=== PATIENT | male | born 1930 | race Caucasian/White ===

== ENCOUNTER → 2019-09-21 | Outpatient (CLI) | payer MEDICARE, OTHER ==
[~2019-09-21] MED LIST: IOPAMIDOL 370 MG/ML 200 ML INFUS..BTL INJ ONE; SODIUM CHLORIDE 0.9% 500ML 500 ML ONE; SODIUM CHLORIDE 0.9% 50ML 50 ML ONE
[2019-09-21 11:24] LABS: CREATININE, SERUM 1.33 mg/dL (0.72-1.25)
--- NOTE | 2019-09-21 12:50 | Diagnostic Imaging Report ---
EXAM: CT Chest WITH intravenous contrast 09/21/2019 10:59 AM INDICATION: Shortness of breath COMPARISON: None TECHNIQUE: Chest was scanned utilizing a multidetector helical scanner from the lung apex through the level of the adrenal glands after administration of IV contrast. Coronal and sagittal reformations were obtained. Routine protocol was performed. IV CONTRAST: 100mL Isovue 370 RADIATION DOSE: Total DLP: 514 mGy*cm. Dose modulation, iterative reconstruction, and/or weight based adjustment of the mA/kV was utilized to reduce the radiation dose to as low as reasonably achievable. COMPLICATIONS: None FINDINGS: LINES/ TUBES: None. LUNGS AND AIRWAYS: The central airways are patent. No focal consolidation or pulmonary edema. Bilateral lower lobe dependent subsegmental atelectasis. Small areas of 3 to 4 mm groundglass nodularity peripherally at the lingula. PLEURA: Moderate bilateral left greater than right pleural effusions. No pneumothorax. HEART AND MEDIASTINUM: The thyroid gland is normal. No supraclavicular, axillary, mediastinal, or hilar lymphadenopathy. The heart is not enlarged. No pericardial effusion. Scattered atherosclerotic calcifications involve the thoracic aorta, coronary arteries and proximal great vessels. This study is not tailored for evaluation for pulmonary embolism however there is no filling defect in the central pulmonary arteries to the level of the segmental pulmonary arteries to suggest pulmonary embolism. UPPER ABDOMEN: No acute findings in the upper abdomen. BONES: The visualized bony thorax is within normal limits. SOFT TISSUES: Unremarkable. IMPRESSION: No focal pneumonia or pulmonary edema. Moderate left greater than right pleural effusions. Signed by: Pedro Rviera MD on 09/21/2019 12:48 PM
== END ==
LOC: CT 10:53
PROVIDERS: ATTEND Internal Medicine Pulmonary Disease
DX: R06.02 Shortness of breath (principal)
CPT/HCPCS: 36415; 71260; 82565; 84520; 96360; J7040; Q9967